=== PATIENT | female | born 1945 | race Hispanic/Latino ===

== ENCOUNTER → 2018-02-13 | Outpatient (CLI) | payer OTHER ==
[~2018-02-13] MED LIST: ASPI-1197 PO; BIOT10005 PO; CRAN500C3 PO; LEVO112T7 PO; LISI-617 PO; MELO-108 PO; SIMV20TA6 PO; vit b12 PO; vit d 3 PO
== END ==
LOC: RAH 14:13
PROVIDERS: ATTEND Physical Medicine & Rehabilitation
DX: M54.5 Low back pain (principal)
CPT/HCPCS: 72114

== ENCOUNTER 2021-04-06 06:49 | Observation (INO) | payer OTHER ==
[2021-03-29 13:31] LABS: BASOPHILS % (AUTO) 0.6 % (0.0-5.0); EOSINOPHILS % (AUTO) 1.7 % (0.0-8.0); HEMATOCRIT 42.1 % (36-48); LYMPHOCYTES % (AUTO) 20.9 % (21.0-51.0); MEAN CORPUSCULAR HEMOGLOBIN 29.9 pg (27.0-33.0); MEAN CORPUSCULAR HGB CONC 33.3 g/dL (32.0-36.0); MEAN CORPUSCULAR VOLUME 89.8 fL (79-99); MONOCYTES % (AUTO) 6.2 % (3.0-13.0); NEUTROPHILS % (AUTO) 70.5 % (40.0-77.0); PLATELET COUNT (AUTO) 161 K/uL (130-400); RED BLOOD CELL COUNT(AUTO) 4.69 MIL/uL (4.00-5.50); RED CELL DISTRIBUTION WIDTH 12.5 % (11.0-15.5)
[2021-03-29 13:40] LABS: CREATININE 0.7 mg/dL (0.5-1.5); POTASSIUM 4.2 mmol/L (3.5-5.1)
[2021-03-29 14:00] LABS: PROTHROMBIN TIME 10.9 SEC (9.6-11.6)
[2021-03-29 14:01] LABS: PARTIAL THROMBOPLASTIN TIME 26.3 SEC (26.3-35.5)
[2021-04-05 11:57] VITALS: BP 168/82
[~2021-04-06] VITALS: Ht 167.6 cm; Wt 90.4 kg
[2021-04-06] VITALS (23 sets, daily range): BP systolic 128–195; BP diastolic 55–82
[~2021-04-06 06:49] MED LIST changes: -ASPI-1197 PO; -BIOT10005 PO; +CEFAZOLIN SODIUM 1 GM VIAL IVP SCH; +CLONIDINE TP SCH; -CRAN500C3 PO; -LISI-617 PO; +LISI-809 PO; -MELO-108 PO; +ROPIVACAINE TP SCH; +SIMV-43 PO; -SIMV20TA6 PO; +[UNRECOGNIZED DRUG - OTHER] TP SCH; -vit b12 PO; -vit d 3 PO
[2021-04-06] MEDS: LACTATED RINGERS 1000ML 1,000 ML IV SCH ×2 (07:06→15:02)
[2021-04-06] MEDS ORDERED: CLONIDINE TP SCH ×10 (07:45)
[2021-04-06] MEDS ORDERED: [UNRECOGNIZED DRUG - OTHER] TP SCH ×5 (07:45)
[2021-04-06] MEDS ORDERED: [UNRECOGNIZED DRUG - OTHER] TP SCH ×5 (07:45)
[2021-04-06] MEDS ORDERED: ROPIVACAINE TP SCH ×10 (07:45)
[2021-04-06] MEDS ORDERED: ASPI-1443 PO (07:50)
[2021-04-06] MEDS ORDERED: DEXAMETHASONE SOD PHOSPHATE 10MG/ML 1ML VIAL ONE (08:47)
[2021-04-06] MEDS ORDERED: ONDANSETRON HCL 4 MG/2 ML VIAL ONE ×2 (08:47→12:34)
[2021-04-06] MEDS ORDERED: SUCCINYLCHOLINE CHLORIDE 20 MG/ML 10 ML VIAL ONE (08:47)
[2021-04-06] MEDS ORDERED: LIDOCAINE PF 2% 5ML ABBOJECT ONE (08:47)
[2021-04-06] MEDS ORDERED: FENTANYL CITRATE PF 50 MCG/1 ML 2ML VIAL ONE ×3 (08:48→13:41)
[2021-04-06] MEDS ORDERED: PROPOFOL 10 MG/ML 20ML VIAL IV ONE (08:48)
[2021-04-06] MEDS ORDERED: MIDAZOLAM HCL 1 MG/ML 2ML VIAL ONE (08:48)
[2021-04-06] MEDS ORDERED: GLYCOPYRROLATE 1 MG/5 ML SYRINGE ONE (08:48)
[2021-04-06] MEDS ORDERED: NEOSTIGMINE 5MG/5ML SYR IV ONE (08:48)
[2021-04-06] MEDS ORDERED: TRANEXAMIC ACID 1000MG/10ML ONE (10:55)
[2021-04-06] MEDS ORDERED: ESMOLOL HCL 10 MG/ML 10 ML VIAL ONE (12:49)
[2021-04-06] MEDS ORDERED: MEPERIDINE-PF 25 MG/ML SYG ONE ×2 (13:21→14:31)
[2021-04-06] MEDS: TRAMADOL HCL 50 MG TABLET PO SCH ×2 (14:00→20:16)
[2021-04-06] MEDS: ACETAMINOPHEN EXTRA STRENGTH 500 MG TABLET PO SCH ×2 (14:00→20:16)
[2021-04-06] MEDS ORDERED: OXYCODONE HCL 5 MG TAB PO PRN (14:00)
[2021-04-06] MEDS ORDERED: HYDRALAZINE HCL 20 MG/ML VIAL ONE (14:27)
[2021-04-06] MEDS: MORPHINE SULFATE 4 MG/1ML SYG IVP PRN ×2 (15:21→21:52)
[2021-04-06] MEDS: SODIUM CHLORIDE 0.9% 1000ML 1,000 ML IV SCH ×2 (15:21→21:49)
[2021-04-06] MEDS: OXYCODONE HCL 5 MG TAB PO PRN (17:31)
[2021-04-06] MEDS: ONDANSETRON HCL 4 MG/2 ML VIAL IVP PRN (18:03)
[2021-04-06] MEDS ORDERED: CEFAZOLIN SODIUM 1 GM VIAL IVP SCH (19:00)
[2021-04-06] MEDS: FAMOTIDINE 20MG TAB 20 MG TAB PO SCH (20:15)
[2021-04-06] MEDS: ASPIRIN 81 MG EC TAB PO SCH (20:15)
[2021-04-06] MEDS: LISINOPRIL 5 MG TABLET PO SCH (20:16)
[2021-04-06] MEDS: CEFAZOLIN SODIUM 1 GM VIAL IVP SCH (20:17)
[2021-04-07] VITALS (7 sets, daily range): BP systolic 130–175; BP diastolic 63–75
[2021-04-07] MEDS: TRAMADOL HCL 50 MG TABLET PO SCH ×4 (02:00→19:49)
[2021-04-07] MEDS: ONDANSETRON HCL 4 MG/2 ML VIAL IVP PRN ×3 (02:01→14:11)
[2021-04-07] MEDS: MORPHINE SULFATE 4 MG/1ML SYG IVP PRN ×2 (02:02→10:25)
[2021-04-07] MEDS: CEFAZOLIN SODIUM 1 GM VIAL IVP SCH (03:58)
[2021-04-07 04:34] LABS: HEMATOCRIT 33.8 % (36-48); MEAN CORPUSCULAR HEMOGLOBIN 29.6 pg (27.0-33.0); MEAN CORPUSCULAR HGB CONC 33.4 g/dL (32.0-36.0); MEAN CORPUSCULAR VOLUME 88.5 fL (79-99); RED BLOOD CELL COUNT(AUTO) 3.82 MIL/uL (4.00-5.50); RED CELL DISTRIBUTION WIDTH 12.3 % (11.0-15.5); WHITE BLOOD COUNT (AUTO) 11.6 K/uL (4.8-10.8)
[2021-04-07] MEDS: ACETAMINOPHEN EXTRA STRENGTH 500 MG TABLET PO SCH ×3 (04:49→19:50)
[2021-04-07 04:50] LABS: CREATININE 0.8 mg/dL (0.5-1.5); POTASSIUM 3.9 mmol/L (3.5-5.1)
[2021-04-07] MEDS: LEVOTHYROXINE 112 MCG TABLET PO SCH (09:32)
[2021-04-07] MEDS: ASPIRIN 81 MG EC TAB PO SCH ×2 (09:32→19:48)
[2021-04-07] MEDS: FAMOTIDINE 20MG TAB 20 MG TAB PO SCH ×2 (09:32→19:48)
[2021-04-07] MEDS: LISINOPRIL 5 MG TABLET PO SCH ×2 (09:32→19:48)
[2021-04-07] MEDS: POLYETHYLENE GLYCOL 3350 17 GM POWD.PACK PO SCH (09:34)
[2021-04-07] MEDS: SODIUM CHLORIDE 0.9% 1000ML 1,000 ML IV SCH (10:00)
[2021-04-07] MEDS: METOCLOPRAMIDE 10 MG/2 ML VIAL IVP SCH (10:51)
[2021-04-07] MEDS: SCOPOLAMINE HYDROBROMIDE 1 EACH ADH..PATCH TD SCH (12:04)
[2021-04-07] MEDS: OXYCODONE HCL 5 MG TAB PO PRN ×2 (12:09→16:50)
[2021-04-08] MEDS: TRAMADOL HCL 50 MG TABLET PO SCH ×3 (02:00→14:00)
[2021-04-08 04:00] VITALS: BP 156/65
[2021-04-08] MEDS: ACETAMINOPHEN EXTRA STRENGTH 500 MG TABLET PO SCH ×2 (04:27→14:00)
[2021-04-08 08:36] VITALS: BP 174/75
[2021-04-08] MEDS: FAMOTIDINE 20MG TAB 20 MG TAB PO SCH (10:02)
[2021-04-08] MEDS: LISINOPRIL 5 MG TABLET PO SCH (10:02)
[2021-04-08] MEDS: ASPIRIN 81 MG EC TAB PO SCH (10:02)
[2021-04-08] MEDS: LEVOTHYROXINE 112 MCG TABLET PO SCH (10:03)
[2021-04-08] MEDS: POLYETHYLENE GLYCOL 3350 17 GM POWD.PACK PO SCH (10:14)
[2021-04-08] MEDS: SCOPOLAMINE HYDROBROMIDE 1 EACH ADH..PATCH TD SCH (10:30)
[2021-04-08] MEDS: METOCLOPRAMIDE 10 MG/2 ML VIAL IVP SCH (10:30)
[2021-04-08 12:18] VITALS: BP 155/69
[2021-04-09] MEDS ORDERED: BISACODYL 10 MG SUPP.RECT RC PRN (14:00)
== END 2021-04-08 17:35 ==
LOC: DAH 06:49 → DAHIP 06:50 → EDSTATUS 11:00 → 4AH 15:13
PROVIDERS: ADMIT Orthopaedic Surgery; ATTEND Orthopaedic Surgery
DX: M17.12 Unilateral primary osteoarthritis, left knee (principal); Z20.822 Contact with and (suspected) exposure to COVID-19; Z88.6 Allergy status to analgesic agent
CPT/HCPCS: 27447; 36415 ×2; 73560; 80048 ×2; 85025; 85027; 85610; 85730; 87641; 96361 ×2; 96374; 96375 ×3; 96376 ×2; 97039 ×5; 97116 ×3; 97161; 97530 ×2; A4215; A4221; A4222; A4223 ×2; A4649 ×5; A4663; A4930 ×2; A6260; A9272; C1776; C9803; G0378 ×50; G8978; G8979; G8980; G8981; G8982; G8983; J0171 ×2; J0330; J0360; J0690 ×3; J0735 ×2; J1100; J1885 ×2; J2001; J2175 ×2; J2250; J2270 ×4; J2405 ×6; J2704; J2710; J2765; J2795 ×2; J3010 ×3; J3490 ×3; J7030; J7120 ×2; U0003

== ENCOUNTER → 2022-03-20 | Outpatient (CLI) | payer OTHER ==
[~2022-03-20] MED LIST changes: +ASPI-1443 PO; -CEFAZOLIN SODIUM 1 GM VIAL IVP SCH; -CLONIDINE TP SCH; -LISI-809 PO; +LISI5TAB21 PO; -ROPIVACAINE TP SCH; -[UNRECOGNIZED DRUG - OTHER] TP SCH
== END ==
LOC: RAH 14:04
PROVIDERS: ATTEND Family Medicine
DX: Z13.6 Encounter for screening for cardiovascular disorders (principal)
CPT/HCPCS: 75571

== ENCOUNTER → 2023-09-06 | Outpatient (CLI) | payer OTHER | END | disposition home or self-care (01) | LOC: RAH 13:59 | PROVIDERS: ATTEND Family Medicine | DX: M48.07 Spinal stenosis, lumbosacral region (principal); M51.36 Other intervertebral disc degeneration, lumbar region; M47.817 Spondylosis without myelopathy or radiculopathy, lumbosacral region; M43.16 Spondylolisthesis, lumbar region | CPT/HCPCS: 72148 ==

== ENCOUNTER → 2024-03-16 | Outpatient (CLI) | payer OTHER ==
[~2024-03-16] MED LIST changes: +IOHEXOL-350 75 ML VIAL IV ONE
== END | disposition home or self-care (01) ==
LOC: RAH 13:42
PROVIDERS: ATTEND Family Medicine
DX: J84.10 Pulmonary fibrosis, unspecified (principal); K44.9 Diaphragmatic hernia without obstruction or gangrene; Z90.49 Acquired absence of other specified parts of digestive tract
CPT/HCPCS: 71270; Q9967

== ENCOUNTER → 2024-12-25 | Outpatient (CLI) | payer OTHER ==
[~2024-12-25] MED LIST changes: -IOHEXOL-350 75 ML VIAL IV ONE
--- NOTE | 2024-12-25 10:05 | HMCIMG ---
CT CORONARY CALCIFICATION SCORING: Anatomic images were reviewed. The calcium score is being generated and reported separately. This report is for the visualized anatomy only. Visualized portions of the lungs are clear. Hilar and mediastinal structures appear normal. Osseous structures are unremarkable. Impression: 1. Negative noncardiac anatomic findings. 2. The calcium score is 510.4 consistent with a significant degree of calcified plaque. This is 90th percentile for a patient this age. CT was performed with one or more following dose reduction techniques: automated exposure control, adjustment of the mA and kv according to patient's size, or use of a iterative reconstruction technique.
== END | disposition home or self-care (01) ==
LOC: RAH 09:41
PROVIDERS: ATTEND Family Medicine
DX: Z13.6 Encounter for screening for cardiovascular disorders (principal)
CPT/HCPCS: 75571

== ENCOUNTER → 2025-01-19 | Outpatient (CLI) | payer OTHER ==
[2025-01-19] MEDS: REGADENOSON 0.4 MG/5 ML PF SYG IVP ONE (14:00)
== END | disposition home or self-care (01) ==
LOC: SHCH 08:19
PROVIDERS: ATTEND Internal Medicine
DX: R51.9 Headache, unspecified (principal); I25.82 Chronic total occlusion of coronary artery; R68.2 Dry mouth, unspecified; Z79.899 Other long term (current) drug therapy
CPT/HCPCS: 78452; 93017; J2785; A9500 ×2

== ENCOUNTER → 2025-02-15 | Outpatient (CLI) | payer OTHER | END | disposition home or self-care (01) | LOC: SHCH 12:41 | PROVIDERS: ATTEND Internal Medicine | DX: I10 Essential (primary) hypertension (principal) | CPT/HCPCS: 93306 ==

== ENCOUNTER → 2025-08-10 | Outpatient (CLI) | payer OTHER ==
[~2025-08-10] MED LIST changes: +ASPI-1197 PO; -ASPI-1443 PO; +GABA100C PO; +LEVO100C5 PO; -LEVO112T7 PO; +LISI10TA24 PO; -LISI5TAB21 PO; +ROSU10TA72 PO; -SIMV-43 PO
[2025-08-10 10:29] LABS: ASPARTATE AMINOTRANSFERASE 21.0 U/L (10-37); CREATININE 0.8 mg/dL (0.5-1.0); GLOMERULAR FILTR. RATE CALC 75.0 mL/min (>90); GLUCOSE,RANDOM 93.0 mg/dL (70-105); SODIUM SERUM 141.0 mmol/L (136-145); TOTAL PROTEIN, SERUM 6.6 g/dL (6.0-8.3); UREA NITROGEN, BLOOD 17.0 mg/dL (7-18)
== END | disposition home or self-care (01) ==
LOC: LAB 09:11
PROVIDERS: ATTEND Neurological Surgery
DX: M21.372 Foot drop, left foot (principal); G89.18 Other acute postprocedural pain
CPT/HCPCS: 36415; 80053

== ENCOUNTER → 2025-08-17 | Outpatient (CLI) | payer OTHER ==
[~2025-08-17] MED LIST changes: +GADOTERATE MEGLUMINE 10 MMOL/20 ML VIAL IV ONE
--- NOTE | 2025-08-17 22:37 | HMCIMG ---
EXAM: MR Lumbar Spine Without and With Intravenous Contrast. CLINICAL HISTORY: Acute postprocedural pain. Left foot drop. Lumbar radiculopathy. TECHNIQUE: Magnetic resonance images of the lumbar spine in multiple planes. CONTRAST: Yes. COMPARISON: MRI dated 05/16/25. FINDINGS: For this examination, spinal levels were labeled assuming five non-rib bearing, lumbar-type vertebrae with the inferior labeled L5. Left L5 laminectomy noted. No acute fracture. Mild to moderate levoscoliosis. Exaggerated lumbar lordosis. Mild degenerative retrolisthesis of L2 over L3 and L3 over L4. Multilevel spondylosis is evident by marginal osteophytes and facet joint arthropathy. Multilevel disc desiccation noted. Moderate degenerative disc height reduction at the L2-L3 level. Normal vertebral body heights. Normal marrow signal of the vertebrae. Conus medullaris terminates at the T12-L1 level. No abnormal epidural masses. Moderate soft tissue inflammation with post contrast-enhancement noted along the postoperative tract at the L5 vertebral level extending anteriorly up to the left L5-S1 lateral recess. The inflammation is seen surrounding the traversing left S1 nerve root. Suspected tiny collection in the laminectomy site. Mild subcutaneous edema in the lower back. Individual spinal levels are described as follows: T12-L1: 3 mm disc osteophyte complex bulge causing mild indentation on the anterior thecal sac. No neural foraminal or lateral recess stenosis. L1-L2: 2 mm disc osteophyte complex bulge causing mild indentation on the anterior thecal sac. No neural foraminal or lateral recess stenosis. L2-L3: 5 mm disc osteophyte complex bulge and facet joint arthropathy causing mild indentation on the anterior thecal sac and mild bilateral foraminal narrowing. No lateral recess stenosis. L3-L4: 4 mm disc osteophyte complex bulge and facet joint arthropathy causing mild indentation on the anterior thecal sac and mild bilateral foraminal narrowing. No lateral recess stenosis. L4-L5: 4 mm left predominant disc osteophyte complex bulge and facet joint arthropathy causing mild left foraminal narrowing with indentation on the exiting left L4 nerve root. No lateral recess or spinal canal stenosis. L5-S1: No disc bulge or herniation. No neural foraminal, lateral recess or spinal canal stenosis. IMPRESSION: Left L5 laminectomy. New finding. Moderate soft tissue inflammation with post contrast-enhancement along the postoperative tract at the L5 vertebral level extending anteriorly up to the left L5-S1 lateral recess. The inflammation is seen surrounding the traversing left S1 nerve root. Suspected tiny collection in the laminectomy site. Imaging findings could represent infective etiology. Recommend clinical and labs correlation. New finding. Mild to moderate levoscoliosis. Stable. Exaggerated lumbar lordosis. Mild degenerative retrolisthesis of L2 over L3 and L3 over L4. Stable. Moderate to severe multilevel spondylosis. Moderate degenerative disc height reduction at the L2-L3 level. Stable. Mild indentation on the anterior thecal sac and mild bilateral foraminal narrowing at the L2-L3 and L3-L4 levels. Stable. Mild left foraminal narrowing with indentation on the exiting left L4 nerve root at the L4-L5 level. Stable. /[place]
== END | disposition home or self-care (01) ==
LOC: RAH 10:49
PROVIDERS: ATTEND Neurological Surgery
DX: M51.16 Intervertebral disc disorders with radiculopathy, lumbar region (principal); M51.35 Other intervertebral disc degeneration, thoracolumbar region; M48.061 Spinal stenosis, lumbar region without neurogenic claudication; M47.26 Other spondylosis with radiculopathy, lumbar region; M41.86 Other forms of scoliosis, lumbar region; M43.16 Spondylolisthesis, lumbar region; G89.18 Other acute postprocedural pain; M25.78 Osteophyte, vertebrae; M21.372 Foot drop, left foot; R60.0 Localized edema
CPT/HCPCS: 72158; A9575